=== PATIENT | female | born 1975 | race Hispanic/Latino ===

== ENCOUNTER 2016-11-07 09:43 | Inpatient (IN) | payer MEDICAID ==
[2016-11-07 09:52] VITALS: BMI 24.0
[2016-11-07] MEDS ORDERED: Lactated Ringer's 1,000 ML IV SCH (10:00)
[2016-11-07 10:09] LABS: BASO % 0.3 % (0.0-2.0); EOS # 0.1 K/uL (0.0-0.7); EOS % 0.3 % (0.0-4.0); HEMATOCRIT 30.9 % (34.0-47.0); LYMPH # 1.3 K/uL (1.0-4.3); LYMPH % 7.7 % (20.0-40.0); MEAN CELL VOLUME 90.5 fL (81.0-99.0); MEAN CORPUSCULAR HEMOGLOBIN 29.5 pg (27.0-31.0); MEAN CORPUSCULAR HGB CONC 32.7 g/dL (33.0-37.0); MEAN PLATELET VOLUME 9.9 fL (7.2-11.7); MONO % 5.9 % (0.0-10.0); PLATELET COUNT 232 K/uL (130-400); RED CELL DISTRIBUTION WIDTH 13.6 % (11.5-14.5); WHITE BLOOD COUNT 17.4 K/uL (4.8-10.8)
[2016-11-07] MEDS ORDERED: Bupivacaine 0.125%/FentaNYL 200 ML EPI ONE (10:12)
[2016-11-07] MEDS ORDERED: Vancomycin 1 gm/NS 200 ml 1 GM/200 ML BAG IVPB ONE (10:15)
[2016-11-07 10:17] LABS: RBC URINE 1 /hpf (0-3); URINE BILIRUBIN NEGATIVE (NEGATIVE); URINE BLOOD NEGATIVE (NEGATIVE); URINE COLOR Yellow (YELLOW); URINE GLUCOSE (UA) NORMAL (Normal); URINE KETONE NEGATIVE (NEGATIVE); URINE LEUKOCYTE ESTERASE NEG Leu/uL (Negative); URINE PROTEIN NEGATIVE (NEGATIVE); URINE UROBILINOGEN NORMAL mg/dL (0.2-1.0); WBC URINE 2 /hpf (0-5)
--- NOTE | 2016-11-07 10:19 | OBHP ---
Datetime: 11/07/2016 10:08 IP Adm Impression: Term, intrauterine ; Active labor IP Chief Complaint Other: 41 year old limited care transferred from [facility] in labor at 38 weeks gestation. PSH: Right Mastectomy for brest cancer with breast reconstru ction. Allergy: Penicillin. betadine and Latex. SH: Denies use of illicit drugs IP Admit Plan: Admit to unit; Initiate labor protocol Admit Comment, IP Provider: Active Labor. Reassuriong Status. No Good . Advanced Mater nal Age. Admit for Labor protocol. Pelvic Type - PN: Adequate Extremities - PN: Normal Abdomen - PN: Normal Back - PN: Normal Breast - PN: Not Done Lungs - PN: Normal Heart - PN: Normal Thyroid - PN: Not Done Neurologic - PN: Not Done HEENT - PN: Not Done General - PN: Normal Weight - Estimated: 3100 Presentation-Admit: Vertex FHR - Baseline A Provider: 140 Membranes, Provider: Intact Contraction Comments Provider: Q 3min. Gestation - Est Wks by US: 38.0 IP Hx Assessment: No Care EGA AdmitDate IP: 38.0 Vital Signs Provider: Reviewed; Within Normal Limits IP Chief Complaint: Uterine contractions NICHD Variability Prov Fetus A: Moderate 6-25bpm FHR Category Provider Fetus A: Category I NICHD Decel Fetus A IP Provider: None Dilatation, Provider: 7 Effacement, Provider: 100 Station, Provider: -1 Genitourinary Exam: Normal DTRs - PN: Normal
--- NOTE | 2016-11-07 10:25 | OBADHP ---
Datetime: 11/07/2016 10:08 IP Chief Complaint Other: 41 year old limited care transferred from [facility] in labor at 38 weeks gestation. PSH: Right Mastectomy for brest cancer with breast reconstru ction. Allergy: Penicillin. betadine and Latex. SH: Denies use of illicit drugs Admit Comment, IP Provider: Active Labor. Reassuriong Status. No Good . Advanced Mater nal Age. Admit for Labor protocol. Addendum: No change from JESSICA H_P. Social service evaluation after delivery. Pelvic Type - PN: Adequate Extremities - PN: Normal Abdomen - PN: Normal Back - PN: Normal Breast - PN: Not Done Lungs - PN: Normal Heart - PN: Normal Thyroid - PN: Not Done Neurologic - PN: Not Done HEENT - PN: Not Done General - PN: Normal Weight - Estimated: 3100 Presentation-Admit: Vertex FHR - Baseline A Provider: 140 Membranes, Provider: Intact Contraction Comments Provider: Q 3min. Gestation - Est Wks by US: 38.0 IP Hx Assessment: No Care Vital Signs Provider: Reviewed; Within Normal Limits IP Chief Complaint: Uterine contractions NICHD Variability Prov Fetus A: Moderate 6-25bpm FHR Category Provider Fetus A: Category I NICHD Decel Fetus A IP Provider: None Dilatation, Provider: 7 Effacement, Provider: 100 Station, Provider: -1 Genitourinary Exam: Normal DTRs - PN: Normal EGA AdmitDate IP: 38.0 IP Adm Impression: Term, intrauterine ; Active labor IP Admit Plan: Admit to unit; Initiate labor protocol
[2016-11-07 10:34] LABS: CHLORIDE 101 mmol/L (98-107)
[2016-11-07 10:35] LABS: POTASSIUM 3.7 mmol/L (3.6-5.2); SODIUM 134 mmol/L (132-148)
[2016-11-07 10:37] LABS: ALKALINE PHOSPHATASE 169 U/L (38-126); ALT/SGPT 21 U/L (9-52); AST/SGOT 20 U/L (14-36); BILIRUBIN,TOTAL 0.8 mg/dL (0.2-1.3); BLOOD UREA NITROGEN 9 mg/dL (7-17); CARBON DIOXIDE 21 mmol/L (22-30); GFR AFRICAN-AMERICAN > 60; TOTAL PROTEIN 5.9 g/dL (6.3-8.3)
[2016-11-07 10:38] LABS: CALCIUM 7.9 mg/dl (8.6-10.4); GLUCOSE,RANDOM 81 mg/dL (65-105)
--- NOTE | 2016-11-07 11:18 | OBPN ---
Datetime: 11/07/2016 11:14 IP Progress Impression: Normal progression of labor; Reassuring heart rate IP Informed Consent Obtain: Vaginal Delivery; Risks, Benefits and Alternatives Discussed IP Procedures: Sterile Vag Exam IP Progress Plan: Continue present management; Anticipate Vaginal Delivery Membranes, Provider: Ruptured Contraction Comments Provider: Q 2min. FHR - Baseline A Provider: 130 Gestation - Est Wks by US: 38.0 Weight - Estimated: 3100 Presentation-Admit: Vertex IP Progress Note Comment: Second Stage of Labor. Anticipate . Vital Signs Provider: Reviewed; Within Normal Limits FHR Category Provider Fetus A: Category I NICHD Variability Prov Fetus A: Moderate 6-25bpm Dilatation, Provider: 10 Effacement, Provider: 100 Station, Provider: 0 NICHD Decel Fetus A IP Provider: None
[2016-11-07] MEDS ORDERED: Oxytocin 20 units in LR 2,000 ML IV ONE (11:27)
[2016-11-07 12:14] LABS: NEUTROPHIL 81 % (50-75); TOTAL CELLS COUNTED 100
[2016-11-07 12:17] LABS: LARGE PLATELETS PRESENT
[2016-11-07 12:19] LABS: GIANT PLATELETS PRESENT
[2016-11-07] MEDS ORDERED: Lidocaine 2% Inj (20ml) ONE (12:19)
--- NOTE | 2016-11-07 12:36 | OBDS ---
DELIVERY PERSONNEL Delivery Doctor: Krzysztof Deutsch MD Scrub Nurse: Safia Bone OBT Employment Coach: Swapna Byrnes RN Anesthesiologist: MD Sharad MATERNAL INFORMATION Delivery Anesthesia: Epidural Medications in Delivery: Pitocin Estimated Blood Loss (ml): 200 Placenta Cultured: No Maternal Complications: None RN Comments: to a live baby Boy to mother's [facility]. Baby attended to by Vivek. 9:9, stable with mother Provider Comments: TO A VIABLE BOY, 'S 9/9. LABOR SUMMARY EDC: 11/21/2016 00:00 LABOR INFORMATION Group B Beta Strep: Not Done STAGES OF LABOR Stage 3 hrs: 0 Stage 3 min: 4 VAGINAL DELIVERY Episiotomy: Median Laceration Extension: N/A Laceration Type: None Other Laceration: 2-0 Chromic catgut Laceration Repair: Yes Laceration Repair Note: Median Episiotomy performed for Recurrent variable decelerations at [facility] . BABY A INFORMATION Delivery Date/Time: 11/07/2016 12:13 Method of Delivery: Vaginal Born in Route : No : N/A Forceps: N/A Vacuum Extraction: N/A Shoulder Dystocia : No SHOULDER DYSTOCIA BABY A Infant Delivery Date/Time: 11/07/2016 12:13 PRESENTATION/POSITION BABY A Presentation: Cephalic Cephalic Presentation: Vertex Vertex Position: Left Occipital Anterior Breech Presentation: N/A PLACENTA INFORMATION BABY A Placenta Delivery Time : 11/07/2016 12:17 Placenta Method of Delivery: Spontaneous Placenta Status: Delivered SCORES BABY A Heart Rate 1 min: >100 bpm Resp Effort 1 min: Good Cry Reflex Irritability 1 min: Cough or Sneeze or Pulls Away Muscle Tone 1 min: Active Motion Color 1 min: Body [place], Extremities Blue SCORE 1 MIN: 9 Heart Rate 5 min: >100 bpm Resp Effort 5 min: Good Cry Reflex Irritability 5 min: Cough or Sneeze or Pulls Away Muscle Tone 5 min: Active Motion Color 5 min: Body [place], Extremities Blue SCORE 5 MIN: 9 INFORMATION BABY A Gestational Age at Delivery: 38.0 Gestational Status: Term Infant Outcome : Liveborn Infant Condition : Stable Sex: Male IDENTIFICATION/MEDS BABY A ID Band Number: [id number] ID Band Location: Left Leg; Left Arm Sensor Applied: Yes Sensor Number: [id number] Sensor Location : Cord Clamp Vitamin K Given : Not Given Erythromycin Given: Given Both Eyes WEIGHT/LENGTH BABY A Birthweight (gms): 2965 Infant Weight (lb): 6 Infant Weight (oz): 9 Infant Length Inches: 19.00 Infant Length cms: 48.3 CORD INFORMATION BABY A No. Cord Vessels: 3 Nuchal Cord : Around Neck x1, Loose Nuchal Cord Other: n/a True Knot: 0 Cord Blood Taken: Yes Banking/Donate Info: n/a Infant Suction: Mouth; Nose ASSESSMENT BABY A Complications: None Physical Findings at Delivery: Within Normal Limits Infant Respirations: Appears Normal Stripe Marker/ALS Called : No Infant Care By: Vivek ROCHA Transferred To: Remains with Mother
[2016-11-07] MEDS ORDERED: Benzocaine/Menthol 20%-0.5% Topical Spray (60 ml) TOP SCH (12:45)
[2016-11-08 07:46] LABS: HEMATOCRIT 29.1 % (34.0-47.0)
[2016-11-08] MEDS: Multiple Vitamins Tab PO SCH (09:54)
--- NOTE | 2016-11-08 10:10 | OBPPN ---
Datetime: 11/08/2016 10:05 PP Pain Prov: Within normal limits PP Pain Prov comment: Well PP Nausea Prov: Denies PP Flatus Prov: Yes PP BM Prov: Yes PP Breasts Prov: Normal PP Heart Prov: Normal PP Lungs Prov: Normal PP Abdomen/Uterus Prov: Normal PP Lochia Prov: Normal PP Vulva/Perineum Prov: Normal PP CVA Tenderness Prov: Normal PP Extremities Prov: Normal PP C/S Incision Prov: Not Applicable PP Progress Prov: Normal PP Comments Phys Exam Prov: Abdomen soft, uterus firm and contracted. Lochia minimal. PP Impression Prov: Normal progression PP Plan Prov: Continue present management PP Progress Note Prov: Stable. services executive evaluation for No PNC and cocaine use. IP PP Procedures: Rhogam Vital Signs Provider PP: Reviewed; Within Normal Limits Vital Signs Provider Details PP: HgB 9.6gm/dl.
[2016-11-08 16:14] VITALS: RESP 20
[2016-11-09 02:23] VITALS: BP 95/52; PULSE 60; TEMP 97.5; O2SAT 97
--- NOTE | 2016-11-09 09:41 | OBPPN ---
Datetime: 11/09/2016 09:38 PP Pain Prov: Within normal limits PP Nausea Prov: Denies PP Flatus Prov: Yes PP Abdomen/Uterus Prov: Normal PP Lochia Prov: Normal PP Extremities Prov: Normal PP Comments Phys Exam Prov: fudus below umblicus ext no edema,no calf ten PP Impression Prov: Normal progression PP Plan Prov: Discharge PP Progress Note Prov: pt was seen at bed side, feels good, tolerating deit, voiding,min peter ruby flaus+ ppd#2 s/p dc home no sex motrin prn f/u in clinic in 6weeks Vital Signs Provider PP: Reviewed; Within Normal Limits
--- NOTE | 2016-11-09 09:43 | OBDCSUM ---
Datetime: 11/09/2016 09:40 Discharged to, Provider: Home Follow up at, Provider: 6weeks Disch Instr Activity: Normal activity Disch Instr Diet: Regular Discharge Diagnosis, Provider: Term Delivered Follow up in weeks, Provider: clinic Disch Activity Restrictions: No exercising; No lifting; No driving; Minimize walking; Minimize stair -climbing; No sexual activity; Nothing in vagina - [place], tampons, douche Discharge Comment, Provider: no sex motrin prn f/u in clinic Discharge Diagnosis Prov Other: s/p
[2016-11-09] MEDS: Multiple Vitamins Tab PO SCH (09:55)
[2016-11-10 14:31] LABS: RAPID PLASMA REAGIN NONREACTIVE (NONREACTIVE)
== END 2016-11-09 20:00 | disposition home or self-care (01) | DRG 373 ==
LOC: C.EROB 09:43 → C.4D 09:49 → C.4M 13:51
PROVIDERS: ADMIT Obstetrics & Gynecology; ATTEND Obstetrics & Gynecology
PROC: 10E0XZZ Delivery of Products of Conception, External Approach (ICD-10-PCS; principal; 2016-11-07)
PROC: 0W8NXZZ Division of Female Perineum, External Approach (ICD-10-PCS; 2016-11-07)
DX: O69.81X0 Labor and delivery complicated by cord around neck, without compression, not applicable or unspecified (principal); O99.324 Drug use complicating childbirth; O09.33 Supervision of pregnancy with insufficient antenatal care, third trimester; F14.90 Cocaine use, unspecified, uncomplicated; O26.893 Other specified pregnancy related conditions, third trimester; O09.523 Supervision of elderly multigravida, third trimester; Z3A.38 38 weeks gestation of pregnancy; Z85.3 Personal history of malignant neoplasm of breast; Z37.0 Single live birth; Z88.0 Allergy status to penicillin